=== PATIENT | female | born 1960 ===

== ENCOUNTER → 2016-09-22 | Day surgery (SDC) | payer OTHER ==
[~2016-09-22] MED LIST: CIPRO PO
--- NOTE | ~2016-09-22 | OR ---
Unit #: [id number] #: [id number] Patient: ELINOR METZ [id number] [address] [id number] [id number] MR#: [id number] NAME: ELINRO METZ ROOM: Date of Procedure: 09/22/2016 Admission Date: 09/22/2016 Surgeon: Parrish Rodriguez M.D. : 1960 Attending Physician: Parrish Rodriguez M.D. OPERATIVE REPORT PROCEDURE PERFORMED Colonoscopy to cecum. INDICATIONS FOR PROCEDURE Average risk for colorectal cancer. MEDICATIONS Monitored anesthesia. POSTOPERATIVE FINDINGS Colonoscopy completed to cecum. Good prep. No polyps or masses. PLAN Repeat colonoscopy in 10 years. DESCRIPTION OF PROCEDURE The patient was explained of the procedure, risks, and benefits along with the risks and benefits of anesthesia. She was brought to the endoscopy room. Propofol anesthesia was given to pull the scope out careful looking, no polyps, masses, or colitis was seen. Mucosa was normal and healthy. I retroflexed in the rectum, small hemorrhoids were noted. Gently, the scope was pulled out. She tolerated it well. No major complications were seen. Dictated by... Sarah Floyd/debbie TD: 09/22/2016 18:35 JOB #: [id number] Unit #: [id number] #: [id number] Patient: ELINOR METZ OPERATIVE REPORT Page 1 of 1 X Parrish Rodriguez MD X PROCEDURE OPERATIVE NOTE
== END | disposition home or self-care (01) ==
LOC: COPS 10:44
PROVIDERS: Internal Medicine
PROC: 0DJD8ZZ Inspection of Lower Intestinal Tract, Via Natural or Artificial Opening Endoscopic (ICD-10-PCS; principal; 2016-09-22 11:30)
DX: Z12.11 Encounter for screening for malignant neoplasm of colon (principal); K64.9 Unspecified hemorrhoids; B19.10 Unspecified viral hepatitis B without hepatic coma; N39.0 Urinary tract infection, site not specified; Z79.2 Long term (current) use of antibiotics; Z90.710 Acquired absence of both cervix and uterus